=== PATIENT | female | born 1970 | race Hispanic/Latino ===

== ENCOUNTER → 2024-06-11 | Outpatient (CLI) | payer OTHER ==
[2024-06-11 06:52] LABS: BASOPHILS # (AUTO) 0.03 K/uL (0.00-0.20); BASOPHILS % (AUTO) 0.8 % (0.0-5.0); EOSINOPHILS # (AUTO) 0.08 K/uL (0.00-0.70); IMMATURE GRANULOCYTE ABSOLUTE 0.01 K/uL (0-1); LYMPHOCYTES # (AUTO) 1.3 K/uL (1.0-4.8); LYMPHOCYTES % (AUTO) 33.2 % (21.0-51.0); MEAN CORPUSCULAR HEMOGLOBIN 29.1 pg (27.0-33.0); MEAN CORPUSCULAR HGB CONC 33.4 g/dL (32.0-36.0); MONOCYTES # (AUTO) 0.3 K/uL (0.1-1.0); MONOCYTES % (AUTO) 7.7 % (3.0-13.0); NEUTROPHILS # (AUTO) 2.2 K/uL (1.8-7.7); PLATELET COUNT (AUTO) 277 K/uL (130-400); RED BLOOD CELL COUNT(AUTO) 4.71 MIL/uL (4.00-5.50); RED CELL DISTRIBUTION WIDTH 12.3 % (11.0-15.5); WHITE BLOOD COUNT (AUTO) 3.9 K/uL (4.8-10.8)
[2024-06-11 08:31] LABS: ALBUMIN 4.2 g/dL (3.5-5.0); BILIRUBIN,TOTAL 0.3 mg/dL (0.2-1.0); CREATININE 0.7 mg/dL (0.5-1.0); POTASSIUM 4.2 mmol/L (3.5-5.1); THYROID STIMULATING HORMONE 0.99 uIU/mL (0.36-3.74); TOTAL PROTEIN, SERUM 7.6 g/dL (6.0-8.3)
== END | disposition home or self-care (01) ==
LOC: LAB 10:00
PROVIDERS: ATTEND Radiology Diagnostic Radiology
DX: Z13.220 Encounter for screening for lipoid disorders (principal); N95.1 Menopausal and female climacteric states; R53.83 Other fatigue; D64.9 Anemia, unspecified
CPT/HCPCS: 36415; 80053; 80061; 82306; 82607; 82670; 83001; 84144; 84443; 85025

== ENCOUNTER → 2024-06-17 | Outpatient (CLI) | payer OTHER ==
[2024-06-18 07:14] LABS: RHEUMATOID ARTHRITIS FACTOR <10.0 IU/mL (<14.0)
[2024-06-20 20:08] LABS: B.BURGOR (LYME) IGG WB INTERP Negative (.); LYME IGG WB P18 AB Absent (.); LYME IGG WB P28 AB Absent (.); LYME IGG WB P30 AB Absent (.); LYME IGG WB P39 AB Absent (.); LYME IGG WB P41 AB Present (.); LYME IGG WB P45 AB Absent (.); LYME IGG WB P58 AB Absent (.); LYME IGG WB P66 AB Absent (.); LYME IGG WB P93 AB Absent (.); LYME IGM-WB INTERP Negative (.); LYME IGM-WB P23 AB Absent (.); LYME IGM-WB P39 AB Absent (.); LYME IGM-WB P41 AB Absent (.)
== END | disposition home or self-care (01) ==
LOC: LAB 09:48
PROVIDERS: ATTEND Surgery
DX: M79.10 Myalgia, unspecified site (principal); M25.50 Pain in unspecified joint
CPT/HCPCS: 36415; 85651; 86038; 86140; 86200; 86215; 86235; 86431; 86617; 87902

== ENCOUNTER → 2024-07-15 | Outpatient (CLI) | payer OTHER ==
[~2024-07-15] MED LIST: ALBU18HF7 IH; CHOL-4 PO; COQ10 PO; FOLI0.4T6 PO; RED1000P MC; RED600CA6 PO; TURMERIC PO; VITA1CAP17 PO; VITAD50000 PO
--- NOTE | 2024-07-15 13:19 | HMCIMG ---
Exam: CERVICAL SPINE 2 VIEWS REASON: ANESTHESIA OF SKIN TECHNIQUE: 3 views were obtained. FINDINGS: There are normal appearing vertebral bodies. Interspace heights are well preserved. There are no visible fractures. Soft tissues appear unremarkable. IMPRESSION: 1. Normal views of the cervical spine.
== END | disposition home or self-care (01) ==
LOC: RAH 09:41
DX: E55.9 Vitamin D deficiency, unspecified (principal); R20.0 Anesthesia of skin
CPT/HCPCS: 72040; 82306

== ENCOUNTER 2024-07-17 10:07 | Day surgery (SDC) | payer OTHER ==
[~2024-07-17] VITALS: Ht 152.4 cm; Wt 62.1 kg
[2024-07-17] VITALS (10 sets, daily range): BP systolic 88–123; BP diastolic 52–87; PULSE 85–115; RESP 16–18; TEMP 97.2–208.6
[~2024-07-17 10:07] MED LIST changes: -RED1000P MC
[2024-07-17] MEDS ORDERED: proPOFol 10 MG/ML 20ML VIAL IV ONE ×3 (10:22→11:56)
[2024-07-17] MEDS ORDERED: ketaMINE 50MG/ML SYRINGE 50 MG/ML DISP.SYRIN ONE (10:44)
[2024-07-17] MEDS: 0.9%NACL 1000ML 1,000 ML IV ONE (11:16)
== END 2024-07-17 13:00 | disposition home or self-care (01) ==
LOC: DAH 10:07 → ENDO 10:07
PROVIDERS: ATTEND Internal Medicine
DX: Z12.11 Encounter for screening for malignant neoplasm of colon (principal); R12 Heartburn; K57.30 Diverticulosis of large intestine without perforation or abscess without bleeding; K64.8 Other hemorrhoids; K29.50 Unspecified chronic gastritis without bleeding; K63.5 Polyp of colon; R14.0 Abdominal distension (gaseous); K21.00 Gastro-esophageal reflux disease with esophagitis, without bleeding; K22.70 Barrett's esophagus without dysplasia; K31.89 Other diseases of stomach and duodenum; K31.A0 Gastric intestinal metaplasia, unspecified; F17.210 Nicotine dependence, cigarettes, uncomplicated; Z98.891 History of uterine scar from previous surgery; Z82.49 Family history of ischemic heart disease and other diseases of the circulatory system; Z83.3 Family history of diabetes mellitus; Z82.5 Family history of asthma and other chronic lower respiratory diseases
CPT/HCPCS: 43239; 45380; J7030 ×2; J2704 ×3; J3490; A4620; A4215 ×2; A4223; A4657; A7002; A4222; A4221; A4663; A4606

== ENCOUNTER 2024-08-28 10:57 | Day surgery (SDC) | payer OTHER ==
[~2024-08-28] VITALS: Ht 152.4 cm; Wt 62.1 kg
[2024-08-28] VITALS (10 sets, daily range): BP systolic 90–133; BP diastolic 53–85; PULSE 63–97; RESP 13–20; TEMP 97.5–97.7
[2024-08-28] MEDS ORDERED: IBUP-2077 PO (12:22)
[2024-08-28] MEDS ORDERED: OMEP40CA21 PO (12:22)
[2024-08-28] MEDS: 0.9%NACL 1000ML 1,000 ML IV ONE (12:34)
[2024-08-28] MEDS ORDERED: proPOFol 10 MG/ML 20ML VIAL IV ONE ×2 (13:36→13:46)
[2024-08-28] MEDS ORDERED: SIMETHICONE 40 MG/0.6 ML ML ONE (13:41)
[2024-08-28] MEDS: IpraTROPium/alBUTERol SULFATE 3 ML SOLUTION IH ONE ×2 (14:52)
== END 2024-08-28 15:00 | disposition home or self-care (01) ==
LOC: DAH 10:57 → ENDO 10:57
PROVIDERS: ATTEND Internal Medicine
DX: R12 Heartburn (principal); K31.89 Other diseases of stomach and duodenum; K80.20 Calculus of gallbladder without cholecystitis without obstruction; J45.909 Unspecified asthma, uncomplicated; K29.70 Gastritis, unspecified, without bleeding; K57.30 Diverticulosis of large intestine without perforation or abscess without bleeding; K64.0 First degree hemorrhoids; Z79.899 Other long term (current) drug therapy
CPT/HCPCS: 43242; 94640; J7030; J2704 ×2; A4620; A4215 ×2; A4657; 43238; J3490

== ENCOUNTER → 2024-11-19 | Outpatient (CLI) | payer OTHER ==
[~2024-11-19] MED LIST changes: -ALBU18HF7 IH; -CHOL-4 PO; +IBUP-2077 PO; +OMEP40CA21 PO; -VITAD50000 PO
[2024-11-19 06:45] LABS: BASOPHILS # (AUTO) 0.03 K/uL (0.00-0.20); BASOPHILS % (AUTO) 0.8 % (0.0-5.0); EOSINOPHILS # (AUTO) 0.06 K/uL (0.00-0.70); EOSINOPHILS % (AUTO) 1.6 % (0.0-8.0); HEMATOCRIT 39.9 % (36-48); IMMATURE GRANULOCYTE ABSOLUTE 0.01 K/uL (0-1); LYMPHOCYTES # (AUTO) 1.3 K/uL (1.0-4.8); LYMPHOCYTES % (AUTO) 36.6 % (21.0-51.0); MEAN CORPUSCULAR HEMOGLOBIN 28.8 pg (27.0-33.0); MEAN CORPUSCULAR HGB CONC 34.1 g/dL (32.0-36.0); MEAN CORPUSCULAR VOLUME 84.4 fL (79-99); MONOCYTES # (AUTO) 0.2 K/uL (0.1-1.0); MONOCYTES % (AUTO) 6.6 % (3.0-13.0); NEUTROPHILS % (AUTO) 54.1 % (40.0-77.0); PLATELET COUNT (AUTO) 268 K/uL (130-400); RED BLOOD CELL COUNT(AUTO) 4.73 MIL/uL (4.00-5.50); RED CELL DISTRIBUTION WIDTH 11.9 % (11.0-15.5); WHITE BLOOD COUNT (AUTO) 3.7 K/uL (4.8-10.8)
[2024-11-19 07:16] LABS: ALBUMIN 3.8 g/dL (3.5-5.0); BILIRUBIN,TOTAL 0.4 mg/dL (0.2-1.0); CREATININE 0.4 mg/dL (0.5-1.0); THYROID STIMULATING HORMONE 1.64 uIU/mL (0.36-3.74)
== END | disposition home or self-care (01) ==
LOC: LAB 06:13
PROVIDERS: ATTEND Nurse Practitioner Family
DX: E55.9 Vitamin D deficiency, unspecified (principal); E78.00 Pure hypercholesterolemia, unspecified
CPT/HCPCS: 36415; 80053; 80061; 82306; 84443; 85025

== ENCOUNTER → 2024-11-26 | Outpatient (CLI) | payer OTHER ==
[2024-11-26 07:33] LABS: HEMOGLOBIN A1C 5.1 % (4.0-6.0)
[2024-11-26 07:46] LABS: THYROID STIMULATING HORMONE 1.98 uIU/mL (0.36-3.74)
[2024-11-28 07:14] LABS: INSULIN, RANDOM OR FASTING 15.6 uIU/mL (2.6-24.9)
== END | disposition home or self-care (01) ==
LOC: LAB 05:54
DX: E28.2 Polycystic ovarian syndrome (principal); Z79.899 Other long term (current) drug therapy
CPT/HCPCS: 36415; 80061; 82627; 82670; 83001; 83002; 83036; 83525; 84402; 84403; 84439; 84443

== ENCOUNTER → 2025-02-17 | Outpatient (CLI) | payer OTHER ==
--- NOTE | 2025-02-17 13:04 | HMCIMG ---
EXAM: US Pelvis, Complete. CLINICAL HISTORY: Pain TECHNIQUE: Transabdominal pelvic ultrasound (complete) with image documentation. COMPARISON: None provided. FINDINGS: ENDOMETRIUM: Thickness measures 2.6 mm, within normal limits. UTERUS/CERVIX: Uterus measures 6 x 3 x 4 cm. A hypoechoic structure is seen, measuring 2 x 1 x 2 cm, possibly representing a fibroid. Small hypoechoic uterine lesion (2 cm), likely fibroid. RIGHT OVARY: Measures 2 x 1 x 2 cm. Demonstrates normal vascular flow. Normal appearance of both ovaries with preserved vascularity. LEFT OVARY: Measures 2 x 1 x 2 cm. Demonstrates normal vascular flow. FREE FLUID: No free fluid. The cul-de-sac is within normal limits. IMPRESSION: 1. Small hypoechoic uterine lesion (2 cm), likely fibroid. 2. Endometrial stripe measures 2.6 mm, within normal limits. 3. Normal appearance of both ovaries with preserved vascularity. 4. No free fluid in the cul-de-sac. /[place]
== END | disposition home or self-care (01) ==
LOC: RAH 07:55
PROVIDERS: ATTEND Nurse Practitioner Family
DX: N85.9 Noninflammatory disorder of uterus, unspecified (principal); R10.2 Pelvic and perineal pain
CPT/HCPCS: 76856